=== PATIENT | female | born 1965 | race Caucasian/White ===

== ENCOUNTER 2021-04-01 02:00 | Emergency (ER) | payer OTHER ==
[~2021-04-01 02:00] MED LIST: AMLODIPINE BES2.5 MG PO; CLARITIN10 M2 PO; HCTZ25 MG PO
[2021-04-01 02:39] LABS: BASOPHIL 0.5 % (0-2); EOSINOPHIL 0.1 % (0-5); HCT 45.4 % (37.0-47.0); HGB 14.8 g/dl (12.5-16.0); LYMPHOCYTE 7.6 % (15-48); MCH 26.7 pg (25.0-31.0); MCHC 32.6 g/dL (32.0-36.0); MCV 81.8 fL (78.0-100.0); MONOCYTE 5.9 % (0-12); MPV 10.2 fL (6.0-9.5); NEUTROPHIL 85.4 % (41-80); NRBC 0; PLT 347 K/uL (150-400); RBC 5.55 M/uL (4.20-5.40); RDW 14.1 % (11.5-14.0); WBC 16.9 K/uL (4.0-10.5)
[2021-04-01 02:54] LABS: INR 1.14 (0.9-1.2)
[2021-04-01 03:15] LABS: ALBUMIN 3.5 g/dL (3.4-5.0); BILIRUBIN - TOTAL 0.5 mg/dL (0.2-1.0); CREATININE 0.86 mg/dL (0.51-0.95); GLOBULIN (CALCULATION) 4.8 g/dL; POTASSIUM 3.3 mmol/L (3.5-5.1); TOTAL PROTEIN 8.3 g/dL (6.4-8.2)
[2021-04-01 03:27] LABS: CORONAVIRUS 2019 SARS-COV-2 NEGATIVE (NEGATIVE); INFLUENZA A NAA NEGATIVE (NEGATIVE)
[2021-04-01 04:46] LABS: BILIRUBIN NEGATIVE (NEGATIVE); BLOOD NEGATIVE Ery/uL (NEGATIVE); CLARITY CLEAR (CLEAR); COLOR YELLOW (YELLOW); GLUCOSE (U) NORMAL (NORMAL); LEUKOCYTES NEGATIVE Leu/uL (NEGATIVE); NITRITE NEGATIVE (NEGATIVE); PROTEIN NEGATIVE (NEGATIVE); SPECIFIC GRAVITY <=1.005 (1.001-1.030); UROBILINOGEN 0.2 mg/dL (0.2-1.0)
[2021-04-01] MEDS ORDERED: AUGMENTIN 875-1 EACH PO (06:35)
[2021-04-01] MEDS ORDERED: VIBRAMYCIN100 MG PO ×2 (06:35→13:00)
[2021-04-01 12:07] LABS: FT4 (FREE T4) 1.1 ng/dL (0.76-1.46)
[2021-04-01] MEDS ORDERED: SPORANOX 100MG100 MG PO (12:35)
== END 2021-04-01 13:08 | disposition home or self-care (01) ==
LOC: FER 02:00
PROVIDERS: Emergency Medicine; Internal Medicine
DX: R59.0 Localized enlarged lymph nodes (principal); E04.1 Nontoxic single thyroid nodule; I10 Essential (primary) hypertension; Z20.822 Contact with and (suspected) exposure to COVID-19; Z88.6 Allergy status to analgesic agent; Z88.8 Allergy status to other drugs, medicaments and biological substances
CPT/HCPCS: 36415; 70486; 71275; 80053; 81003; 83605; 83690; 83880; 84145; 84439; 84443; 84484; 85025; 85610; 85730; 93005; J0696; J7030; J7040; Q9967; U0002